=== PATIENT | female | born 1965 | race Caucasian/White ===

== ENCOUNTER 2019-02-14 14:56 | Emergency (ER) | payer MEDICAID ==
[~2019-02-14] VITALS: Ht 170.2 cm; Wt 68.0 kg
[2019-02-14 15:51] VITALS: BP_SYST 119
--- NOTE | 2019-02-14 17:00 | NUR ---
PT TO H1 FOR EVALUATION
--- NOTE | 2019-02-14 17:10 | NUR ---
PT C/O R WRIST PAIN S/O FALL.
--- NOTE | 2019-02-14 17:30 | NUR ---
THUMB SPICA splint applied to L WRIST. + pulse noted. Capillary refill <3 seconds. Patient has ability to move non-splinted digits. Has sensation present to affected site. Skin color within normal limits. Applied for pain management control.
[2019-02-14 17:54] VITALS: BP_SYST 120
--- NOTE | 2019-02-14 17:54 | NUR ---
Patient given written and verbal discharge instructions and verbalizes understanding. ER MD discussed with patient the results and treatment provided. Patient in stable condition. ID arm band removed. no Rx of given. Patient educated on pain management and to follow up with PMD. Pain Scale 2. Opportunity for questions provided and answered. Medication side effect fact sheet provided.
--- NOTE | 2019-02-15 17:00 | NUR ---
Note daniel in ED - 02/15/19 at 1928 by MIKEL Patient to ER bed H1 to gown for evaluation. Side rails up.
--- NOTE | 2019-02-15 17:10 | NUR ---
Alina sanchez in [facility] - 02/15/19 at 1934 by MIKEL PT C/O R WRIST PAIN S/P MECH FALL
== END 2019-02-15 17:54 | disposition home or self-care (01) ==
LOC: SED 14:56
DX: S63.502A Unspecified sprain of left wrist, initial encounter (principal); R03.0 Elevated blood-pressure reading, without diagnosis of hypertension; W18.39XA Other fall on same level, initial encounter; Y93.89 Activity, other specified; Y92.89 Other specified places as the place of occurrence of the external cause; Y99.8 Other external cause status
CPT/HCPCS: 99283

== ENCOUNTER 2019-02-22 09:57 | Emergency (ER) | payer MEDICAID ==
[~2019-02-22] VITALS: Ht 172.7 cm; Wt 64.4 kg
[2019-02-22 10:00] VITALS: BP_SYST 124
--- NOTE | 2019-02-22 12:15 | NUR ---
Patient to ER bed H1 to gown for evaluation. Side rails up.
--- NOTE | 2019-02-22 12:20 | NUR ---
PT PRESENTS TO ED C/O INCREASED WRIST AND ARM PAIN S/P SPLINT PLACEMENT FROM PREVIOUS VISIT.
--- NOTE | 2019-02-22 12:25 | NUR ---
ER at bedside examining patient.
--- NOTE | 2019-02-22 12:40 | NUR ---
VELCRO THUMB SPICA APPLIED.
[2019-02-22 12:53] VITALS: BP_SYST 124
--- NOTE | 2019-02-22 12:53 | NUR ---
Patient given written and verbal discharge instructions and verbalizes understanding. ER MD discussed with patient the results and treatment provided. Patient in stable condition. ID arm band removed. NO Rx of given. Patient educated on pain management and to follow up with PMD. Pain Scale 0. Opportunity for questions provided and answered. Medication side effect fact sheet provided.
== END 2019-02-22 12:53 | disposition home or self-care (01) ==
LOC: SED 09:57
DX: M25.532 Pain in left wrist (principal)
CPT/HCPCS: 99283

== ENCOUNTER 2020-04-08 13:32 | Emergency (ER) | payer MEDICAID ==
[~2020-04-08] VITALS: Ht 170.2 cm; Wt 68.0 kg
[2020-04-08 13:48] VITALS: BP_SYST 141
[2020-04-08] MEDS ORDERED: HYDROcodone/ACETAMIN 5-325 MG TAB (NORCO/ VICODIN) PO ONE (14:00)
[2020-04-08 15:09] VITALS: BP_SYST 138
== END 2020-04-08 15:09 | disposition home or self-care (01) ==
LOC: SED 13:32
DX: M79.642 Pain in left hand (principal); M65.4 Radial styloid tenosynovitis [de Quervain]; L93.0 Discoid lupus erythematosus; W20.8XXA Other cause of strike by thrown, projected or falling object, initial encounter; Y93.89 Activity, other specified; Y92.89 Other specified places as the place of occurrence of the external cause; Y99.8 Other external cause status
CPT/HCPCS: 99283